=== PATIENT | female | born 1940 | race Caucasian/White ===

== ENCOUNTER 2020-05-12 13:14 | Emergency (ER) | payer MEDICARE, OTHER ==
[~2020-05-12] VITALS: Ht 162.6 cm; Wt 83.9 kg
[2020-05-12 13:25] VITALS: BP_SYST 146
[2020-05-12 15:47] VITALS: BP_SYST 146
== END 2020-05-12 15:47 | disposition home or self-care (01) ==
LOC: SED 13:14
DX: S06.0X0A Concussion without loss of consciousness, initial encounter (principal); S00.83XA Contusion of other part of head, initial encounter; S83.91XA Sprain of unspecified site of right knee, initial encounter; S83.92XA Sprain of unspecified site of left knee, initial encounter; S63.501A Unspecified sprain of right wrist, initial encounter; S00.11XA Contusion of right eyelid and periocular area, initial encounter; W01.0XXA Fall on same level from slipping, tripping and stumbling without subsequent striking against object, initial encounter; Y93.89 Activity, other specified; Y92.89 Other specified places as the place of occurrence of the external cause; Y99.8 Other external cause status
CPT/HCPCS: 70450-TC; 70486-TC; 72125-TC; 73564; 73590-TC; 99285

== ENCOUNTER 2024-04-30 17:59 | Emergency (ER) | payer MEDICARE, OTHER ==
[~2024-04-30] VITALS: Ht 162.6 cm; Wt 96.2 kg
[2024-04-30 18:15] VITALS: BP_SYST 124; PULSE 76; RESP 18; TEMP 97.8; O2SAT 97
[2024-04-30] MEDS: ALBUTEROL SULFATE 0.083% 2.5 MG/3 ML VIAL.NEB INH ONE (19:24)
[2024-04-30] MEDS ORDERED: AZITHROMYCIN 250 MG TABLET ONE (19:41)
[2024-04-30] MEDS: AZITHROMYCIN 250 MG TABLET PO ONE (19:42)
[2024-04-30] MEDS ORDERED: AZIT500T PO (19:53)
[2024-04-30] MEDS ORDERED: ALBMDI INH (19:53)
[2024-04-30 20:00] VITALS: BP_SYST 124; PULSE 76; RESP 18; TEMP 97.8; O2SAT 95
== END 2024-04-30 20:00 | disposition home or self-care (01) ==
LOC: SED 17:59
DX: J06.9 Acute upper respiratory infection, unspecified (principal); I10 Essential (primary) hypertension; Z90.710 Acquired absence of both cervix and uterus; Z98.890 Other specified postprocedural states; I25.2 Old myocardial infarction; Z85.3 Personal history of malignant neoplasm of breast; Z88.0 Allergy status to penicillin; Z88.5 Allergy status to narcotic agent; Z79.899 Other long term (current) drug therapy; Z79.2 Long term (current) use of antibiotics
CPT/HCPCS: 99283; 71045; 94640; Q0144